=== PATIENT | female | born 1990 | race African-American/Black ===

== ENCOUNTER 2023-11-30 19:24 | Emergency (ER) | payer SELFPAY ==
[2023-11-30] MEDS ORDERED: EPINEPHrine/PF 1 MG/1 ML (1:1,000) AMPULE ONE (19:30)
[2023-11-30] MEDS: FAMOTIDINE 20 MG/50 ML IVPB 20 MG/50 ML MG IVPB ONE (19:46)
[2023-11-30] MEDS: EPINEPHrine/PF 1 MG/1 ML (1:1,000) AMPULE IM ONE (19:46)
[2023-11-30] MEDS: DEXAMETHASONE SOD PHOSPHATE 10 MG/1 ML VIAL IVPUSH ONE (19:46)
[2023-11-30 20:46] VITALS: TEMP 97.9; BMI 22.6
[2023-11-30] MEDS: SODIUM CHLORIDE 0.9% 500 ML INFUS.BAG IV ONE (21:15)
[2023-11-30 23:07] VITALS: BP 113/67; PULSE 70; RESP 18
== END 2023-12-01 01:07 | disposition home or self-care (01) ==
LOC: JER 19:24
PROC: 3E033GC Introduction of Other Therapeutic Substance into Peripheral Vein, Percutaneous Approach (ICD-10-PCS; principal; 2023-11-30)
PROC: 3E023GC Introduction of Other Therapeutic Substance into Muscle, Percutaneous Approach (ICD-10-PCS; 2023-11-30)
DX: R22.0 Localized swelling, mass and lump, head (principal); L29.9 Pruritus, unspecified; T78.2XXA Anaphylactic shock, unspecified, initial encounter
CPT/HCPCS: 99284-25; J1100

== ENCOUNTER 2023-12-20 23:03 | Emergency (ER) | payer OTHER ==
[2023-12-20 23:10] VITALS: BP 114/73; PULSE 79; RESP 18; TEMP 98; BMI 23.0
== END 2023-12-21 01:28 | disposition home or self-care (01) ==
LOC: JER 23:03
DX: M94.0 Chondrocostal junction syndrome [Tietze] (principal); R00.2 Palpitations; R05.9 Cough, unspecified; R09.81 Nasal congestion
CPT/HCPCS: 93005; 93010; 99284-25